=== PATIENT | female | born 1970 | race Caucasian/White ===

== ENCOUNTER 2016-12-11 10:26 | Emergency (ER) | payer OTHER ==
[2016-12-11 10:49] VITALS: BP 121/65
--- NOTE | 2016-12-11 17:27 | ED ---
Abdominal Pain/Female - HPI Summary HPI Summary: 46 YEAR OLD FEMALE PRESENTS WITH SEVERE RIGHT LOWER QUADRANT PAIN. I WILL REFER HER TO THE ER. - History of Current Complaint Chief Complaint: UCAbdominalPain Stated Complaint: ABD PAIN Time Seen by Provider: 12/11/16 10:58 Hx Last Menstrual Period: does not get Pain Intensity: 10 Pain Scale Used: 0-10 Numeric Allergies/Adverse Reactions: Allergies Allergy/AdvReac Type Severity Reaction Status Date / Time Amoxicillin Allergy See Comment Verified 12/11/16 10:49 Penicillins Allergy See Comment Verified 12/11/16 10:49 PMH/Surg Hx/FS Hx/Imm Hx Endocrine/Hematology History: Denies: Hx Diabetes, Hx Sickle Cell Disease, Hx Thyroid Disease Cardiovascular History: Denies: Hx Hypertension, Other Cardiovascular Problems/Disorders Respiratory History: Denies: Hx Asthma, Hx Chronic Obstructive Pulmonary Disease (COPD), Other Respiratory Problems/Disorders GI History: Denies: Hx Ulcer, Other GI Disorders History: Denies: Other Problems/Disorders Musculoskeletal History: Reports: Hx Arthritis - SPINE, NECK, Hx Tendonitis - RIGHT ELBOW ONLY Denies: Other Musculoskeletal History Sensory History: Reports: Hx Contacts or Glasses - GLASSES FOR DRIVING Denies: Hx Hearing Aid Opthamlomology History: Reports: Hx Contacts or Glasses - GLASSES FOR DRIVING Neurological History: Reports: Hx Migraine - PROPRANOLOL CONTROLING, 4-5 TIMES PER MONTH Denies: Other Neuro Impairments/Disorders Psychiatric History: Reports: Hx Depression - CYMBALTA - Cancer History Hx Chemotherapy: No Hx Radiation Therapy: No - Surgical History Surgery Procedure, Year, and Place: Hysterectomy 1999, [facility];. AGE 4 FROM DOG BITE, FACIAL RECONSTRUCTION, [place] Hx Anesthesia Reactions: No Infectious Disease History: No Infectious Disease History: Denies: Hx Clostridium Difficile, Hx Hepatitis, Hx Human Immunodeficiency Virus (HIV), Hx of Known/Suspected MRSA, Hx Shingles, Hx Tuberculosis, Hx Known/ Suspected VRE, Hx Known/Suspected VRSA, History Other Infectious Disease, Traveled Outside the [place] in Last 30 Days - Family History Known Family History: Positive: None - Social History Alcohol Use: None Substance Use Type: Reports: None Smoking Status (MU): Current Every Day Smoker Amount Used/How Often: 1/2 PPD Review of Systems Positive: Fever Positive: Abdominal Pain, Other - RLQ PAIN All Other Systems Reviewed And Are Negative: Yes Physical Exam Triage Information Reviewed: Yes Vital Signs On Initial Exam: Initial Vitals Temp Pulse Resp BP Pulse Ox 36.6 C 75 20 121/65 100 12/11/16 10:44 12/11/16 10:44 12/11/16 10:44 12/11/16 10:44 12/11/16 10:44 Vital Signs Reviewed: Yes Abdomen Description: Positive: McBurney's Point Tenderness - RLQ PAIN Diagnostics - Vital Signs Vital Signs Temp Pulse Resp BP Pulse Ox 12/11/16 10:44 36.6 C 75 20 121/65 100 - Laboratory Lab Statement: Any lab studies that have been ordered have been reviewed, and results considered in the medical decision making process. Abdominal Pain Fem Course/Dx - Diagnoses Differential Diagnosis: Positive: Appendicitis Provider Diagnoses: Abdominal pain Discharge - Discharge Plan Condition: Stable Disposition: AGAINST MEDICAL ADVICE Referrals: Javon TILLMANPVeda [Primary Care Provider] -
== END 2016-12-11 11:21 | disposition left against medical advice (07) ==
LOC: UCEAST 10:26
DX: R10.9 Unspecified abdominal pain (principal); M19.90 Unspecified osteoarthritis, unspecified site; G43.909 Migraine, unspecified, not intractable, without status migrainosus; F32.9 Major depressive disorder, single episode, unspecified; F17.210 Nicotine dependence, cigarettes, uncomplicated; Z88.1 Allergy status to other antibiotic agents; Z88.0 Allergy status to penicillin
CPT/HCPCS: 99212; G0463

== ENCOUNTER → 2016-12-11 11:35 | Emergency (ER) | payer OTHER ==
[~2016-12-11 11:35] MED LIST: Iohexol 300* (CONTRAST) 10 ML SDV IV ONE; NS 0.9% 1000 ML* 2,000 ML IV ONE
[2016-12-11 12:57] LABS: Hematocrit 40 % (35-47); Hemoglobin 13.7 g/dl (12.0-16.0); Mean Corpuscular HGB Conc 34 g/dl (31-36); Mean Corpuscular Hemoglobin 33 pg (27-31); Mean Corpuscular Volume 96 fL (80-97); Mean Platelet Volume 8 um3 (7.4-10.4); Red Blood Count 4.18 10^6/ul (4.0-5.4); Red Cell Distribution Width 13 % (10.5-15); White Blood Count 8.7 10^3/ul (3.5-10.8)
[2016-12-11 13:13] LABS: Albumin 3.8 g/dL (3.2-5.2); BUN/Creatinine Ratio 14.5 (8-20); C Reactive Protein 42.27 mg/L (< 5.00); Calcium 9.2 mg/dL (8.6-10.3); EGFR Non-African American 74.7 (>60); Globulin 2.7 g/dL (2-4); Potassium 3.4 mmol/L (3.5-5.0); Total Bilirubin 0.2 mg/dL (0.2-1.0); Total Protein 6.5 g/dL (6.4-8.9); Urine Bilirubin Negative (Negative); Urine Glucose Negative (Negative); Urine Nitrite Negative (Negative)
--- NOTE | 2016-12-11 13:21 | RAD ---
INDICATION: Right upper quadrant pain COMPARISON: None TECHNIQUE: Longitudinal and transverse scans of the right upper quadrant were obtained. Doppler interrogation of the hepatic and portal venous system was performed. FINDINGS: Liver: The liver is normal in size and echogenicity. There are no focal masses. The liver measures 17.1 cm in cephalocaudal dimension. Vessels: There is normal hepatic and portal venous flow. Bile ducts: There is no evidence of intrahepatic or extrahepatic ductal dilatation. The common duct measures 0.2 cm. Gallbladder: The sonographic appearance of the gallbladder is normal. There is no evidence of cholelithiasis, thickening of the gallbladder wall, or pericholecystic fluid. Pancreas: The visualized pancreas appears normal Right kidney: The right kidney is normal in size and echogenicity. There are no masses or calculi. There is no evidence of hydronephrosis. The right kidney measures 10.4 x 4.4 x 4.6 cm. IVC and aorta: The aorta and superior vena cava appear normal. Fluid: There is no ascites. Other: None. IMPRESSION: NORMAL STUDY.
--- NOTE | 2016-12-11 14:37 | RAD ---
INDICATION: Upper abdominal/epigastric pain. Nausea. Vomiting. COMPARISON: Gallbladder sonogram same date TECHNIQUE: Axial source images were obtained from the hemidiaphragms to the symphysis pubis following administration of oral and intravenous contrast. 79 mL Omnipaque 300 was utilized. Coronal and sagittal reconstructed images were acquired. Lung bases: The lung bases are clear. Liver: The liver is normal in size. There are no masses. There is no ductal dilatation. Gallbladder: The gallbladder is partially contracted. No calcified gallstones are seen. Spleen: The spleen is normal in size. There are no masses. Pancreas: There is no focal pancreatic mass or ductal dilatation. Adrenal glands: There is no evidence of adrenal mass. Kidneys: The kidneys are normal in size and position. There are prompt nephrograms and there is prompt excretion bilaterally. There are no renal parenchymal masses. There is no evidence of nephrolithiasis. Adenopathy: There is no evidence of adenopathy by size criteria. Fluid collections: There are no free or localized fluid collections. Vessels:There are no significant atherosclerotic changes involving the aorta. There is no focal aneurysm. The iliac vessels are normal in caliber. The IVC appears normal. GI tract: There are no acute CT bowel findings. The GE junction is patulous. The upper GI tract is otherwise unremarkable. There is moderate stool throughout the colon. The appendix is visualized and appears normal. There is no obstruction. Pelvic organs: There is hysterectomy. There is no adnexal mass Bladder: There are no bladder masses. Abdominal and pelvic soft tissues: The extraperitoneal abdominal and pelvic soft tissues appear normal.. Osseous structures: There are no acute osseous findings. Other: None IMPRESSION: RETAINED STOOL. NO MASS OR INFLAMMATORY CHANGES.
[2016-12-11 15:48] VITALS: BP 121/69
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
== END | disposition home or self-care (01) ==
LOC: ED 11:35
DX: K85.90 Acute pancreatitis without necrosis or infection, unspecified (principal); R10.13 Epigastric pain; F17.210 Nicotine dependence, cigarettes, uncomplicated
CPT/HCPCS: 36415; 74177; 76705; 80053; 81003; 82150; 83605; 83690; 85025; 86140; 93005; 96360; 99283; Q9967

== ENCOUNTER 2017-11-05 08:04 | Day surgery (SDC) | payer OTHER ==
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
[~2017-11-05 08:04] MED LIST changes: +Buffered Lidocaine 0.9% SYRIN* 5 ML/SYR SYRINGE INTRADERM ONE; -Iohexol 300* (CONTRAST) 10 ML SDV IV ONE; -NS 0.9% 1000 ML* 2,000 ML IV ONE; +Sodium Citrate/Citric Acid* 15 ML UDC PO ONE
[2017-11-05] MEDS ORDERED: Clindamycin 900 MG IVPREMIX(* 900 MG/50 ML SDV IV ONE (08:14)
[2017-11-05] MEDS ORDERED: Sodium Citrate/Citric Acid* 15 ML UDC ONE (08:14)
[2017-11-05] MEDS ORDERED: Bupivacaine 0.5% SDV PF* 30ML VIAL ONE (08:56)
[2017-11-05] MEDS ORDERED: Naloxone* 0.4 MG/ML 1 ML VIAL IV PRN (09:41)
[2017-11-05] MEDS ORDERED: Midazolam* 1 MG/ML 2 ML VIAL (2 MG) ONE (09:47)
[2017-11-05] MEDS ORDERED: Lidocaine 0.5%* 50 ML SDV ONE (09:47)
[2017-11-05] MEDS ORDERED: fentaNYL* 50 MCG/ML 2 ML VIAL (100 MCG VIAL) ONE (10:04)
[2017-11-05] MEDS ORDERED: Propofol* 10 MG/ML 20 ML BTL IV PUSH ONE (10:48)
[2017-11-05] MEDS ORDERED: DiMENhydriNATE IV* 50 MG/ML VIAL ONE (10:48)
[2017-11-05 11:06] VITALS: BP 110/72
--- NOTE | 2017-11-06 07:51 | OP ---
DATE OF OPERATION: 11/05/17 [facility] DATE OF : 74 SURGEON: Amelia Dimas MD [employer] PASTER: LARRY Burr ANESTHESIA: IV regional. PRE-OP DIAGNOSIS: Left thumb carpometacarpal arthritis. POST-OP DIAGNOSIS: Left thumb carpometacarpal arthritis. OPERATIVE PROCEDURE: Left thumb CMC arthroplasty. INDICATIONS: Daphne is a 47-year-old woman, who has painful arthritis at the base of her left thumb. This occurred after an injury at work. It has gotten worse over time and she presents now for left thumb CMC arthroplasty. ESTIMATED BLOOD LOSS: Zero. TOURNIQUET TIME: About 30 minutes. DESCRIPTION OF PROCEDURE: The patient was brought to the operating room, was given a sedation anesthetic, and an IV regional anesthetic with a tourniquet around her left forearm. Skin of her left hand and forearm was prepped and draped in the usual sterile fashion. The hand and forearm were exsanguinated and the tourniquet elevated to 250 mmHg. An S-shaped incision was made centered at the thumb CMC joint. We dissected bluntly through the subcutaneous tissue. The branches of the radial sensory nerve were located, then were retracted by the phys assistant, Mary Linder, whose assistance was essential for the safe completion of the case. The radial artery was dissected off the CMC joint capsule and this too was retracted by the phys assistant, Mary Linder. A distally based U-shaped flap was created at the thumb CMC joint capsule and then the trapezium was subperiosteally dissected away from the surrounding bones and tissues and removed in its entirety with the rongeur and osteotome. The wound was copiously irrigated with saline. The CMC joint capsule was then secured to the FCR tendon, which was in the base of the wound and this gave very nice abduction position of the metacarpal. The MP joint had a nice flexion position. The remainder of the capsule was closed with 4-0 nylon suture while the metacarpal was held abducted. The wound was irrigated and the skin edges reapproximated with 4-0 nylon suture. The wound was dressed with Xeroform, 4x4, Webril, and a thumb spica splint. The patient tolerated the procedure well and was brought to the recovery room in good condition. [id number]/[facility] #: [id number] [facility]
== END 2017-11-05 11:40 | disposition home or self-care (01) ==
LOC: OREAST 08:04
PROVIDERS: ATTEND Orthopaedic Surgery
DX: M18.32 Unilateral post-traumatic osteoarthritis of first carpometacarpal joint, left hand (principal); F17.210 Nicotine dependence, cigarettes, uncomplicated; M79.7 Fibromyalgia; E78.00 Pure hypercholesterolemia, unspecified; G43.909 Migraine, unspecified, not intractable, without status migrainosus; M16.10 Unilateral primary osteoarthritis, unspecified hip
CPT/HCPCS: A9270-GY; J1240; J2250; J2704; J3010

== ENCOUNTER 2018-08-09 14:35 | Emergency (ER) | payer BC ==
[2018-08-09 14:54] VITALS: BP 122/69
--- NOTE | 2018-08-09 15:20 | UC ---
Back Pain HPI - HPI Summary HPI Summary: 48-year-old woman comes in with a chief complaint of low back pain is radiating down the left leg. Pain started about 8 days ago. Her job she does do a lot of lifting and twisting and bending. She can't say whether or not the pain started at her job or not. She's been taking ibuprofen and Tylenol with minimal relief. The pain does go down the left leg. It hurts to move the left leg and twisted her in the back. No complaint of any numbness or loss of control of urine or bowel. There is pain with range of motion in the patient reports she is able to force the leg to do whatever she wants and therefore denies any weakness. No specific trauma denies any prior history of low back pain. - History of Current Complaint Chief Complaint: UCBackPain Stated Complaint: LOWER LFT BACK PAIN Time Seen by Provider: 08/09/18 14:51 Hx Last Menstrual Period: does not get Pain Intensity: 10 - Allergies/Home Medications Allergies/Adverse Reactions: Allergies Allergy/AdvReac Type Severity Reaction Status Date / Time clindamycin Allergy Itching Verified 08/09/18 14:47 Penicillins Allergy Unknown Verified 08/09/18 14:47 Reaction Details PMH/Surg Hx/FS Hx/Imm Hx Previously Healthy: Yes - arthritis Cardiovascular History: Hypertension - Surgical History Surgical History: Yes Surgery Procedure, Year, and Place: Hysterectomy 1999, [facility] – [place]. AGE 4 FROM DOG BITE, FACIAL RECONSTRUCTION, [facility]. left [place] finger, 2012, [facility] [place]. L thumb surgery 10/2017 - Family History Known Family History: Positive: None Negative: Cardiac Disease, Hypertension, Diabetes - Social History Alcohol Use: None Alcohol Amount: holidays Substance Use Type: None Smoking Status (MU): Current Every Day Smoker Amount Used/How Often: pack a day since age 16 - Immunization History Most Recent Tetanus Shot: one yr ago Review of Systems All Other Systems Reviewed And Are Negative: Yes Constitutional: Positive: Negative Skin: Positive: Negative Eyes: Positive: Negative ENT: Positive: Negative Respiratory: Positive: Negative Cardiovascular: Positive: Negative Gastrointestinal: Positive: Negative Genitourinary: Positive: Negative Motor: Positive: Negative Neurovascular: Positive: Negative Musculoskeletal: Positive: Other: - see hpi Neurological: Positive: Negative Psychological: Positive: Negative Is Patient Immunocompromised?: No Physical Exam Triage Information Reviewed: Yes Appearance: Well-Appearing, Well-Nourished, Pain Distress Vital Signs: Initial Vital Signs Temp 99.0 F 08/09/18 14:46 Pulse 69 08/09/18 14:46 Resp 18 08/09/18 14:46 BP 122/69 08/09/18 14:46 Pulse Ox 99 08/09/18 14:46 Vital Signs Reviewed: Yes Eye Exam: Normal Eyes: Positive: Conjunctiva Clear Neck exam: Normal Neck: Positive: Supple Respiratory: Positive: No respiratory distress Musculoskeletal: Positive: Other: - Patient is tender to palpation of the lumbar spine. Paraspinous muscles on the left feel like and spasm. Patient is tender to palpation along the left sciatic nerve distribution into the left buttock. Patient's plantar flexion and dorsiflexion bilaterally 5 out of 5. Knee flexion extension and hip flexion are all 5 out of 5 strength. No sensation deficits normal capillary refill. Patient does have more pain in the back with movement of the left leg primarily at the left hip flexion. Neurological Exam: Normal Neurological: Positive: Alert, Muscle Tone Normal Psychological Exam: Normal Psychological: Positive: Age Appropriate Behavior Skin Exam: Normal Back Pain Course/Dx - Course Course Of Treatment: Patient Name: JULIO CESAR REYES Medical Record#: [id number]. Ordering Physician: Micheal Meyrs MD Acct.#: [id number]. : 1970 Age: 48 Sex: F Location: [facility]. Exam Date: 08/09/18 1514 ADM Status: REG ER. Order Information: CT SPINE LUMBAR W/O. Accession Number: [id number]. CPT: 79256. HISTORY: low back pain,radiation down left leg. COMPARISONS: None. TECHNIQUE: Multiple contiguous axial CT scans were obtained of the lumbar spine without. intravenous contrast, with coronal and sagittal multiplanar reformations. FINDINGS: SPINAL CANAL: Evaluation of the central canal is limited on CT technique; however, there. is no obvious canalicular mass or epidural hemorrhage. ALIGNMENT: The alignment is normal. VERTEBRAL BODIES: The vertebral bodies are preserved in height. The bones are normal in. attenuation. JOINTS: There is no subluxation or dislocation. MUSCULATURE: Unremarkable. INTERVERTEBRAL DISCS: There is mild diffuse loss of intervertebral disc height throughout. the spine. AXIAL IMAGES: T12-L1: There is no osseous neural foraminal narrowing or central canal stenosis. L1-L2 : There is no osseous neural foraminal narrowing or central canal stenosis. L2- L3: There is no osseous neural foraminal narrowing or central canal stenosis. L3-L4: There is a mild broad-based disc bulge. There is no osseous neural foraminal. narrowing or central canal stenosis. L4-L5: There is a mild broad- based disc bulge. There is no osseous neural foraminal. narrowing or central canal stenosis. L5-S1: There is a mild broad-based disc bulge. There is no osseous neural foraminal. narrowing or central canal stenosis. SOFT TISSUES: The visualized soft tissues of the abdomen are unremarkable. OTHER: None. IMPRESSION: MILD DEGENERATIVE DISC DISEASE. NO OSSEOUS NEURAL FORAMINAL NARROWING OR CENTRAL CANAL. STENOSIS. . <Electronically signed by Uli ePrry MD in OV> 08/09/18 3873. I discussed the CT report with patient. Patient has no focal neurologic deficit at this time. Patient can continue with her nonsteroidal anti-inflammatories and icing the area. Doing a prescription for both Flexeril and hydrocodone. Patient reports having Flexeril past and it did not seem to help for a prior pain. I encouraged her to try the Flexeril first that that worked sooner if acutely she does not need to take hydrocodone but she has not had chronic necessary. Plan is to follow-up with her primary care physician. Patient will return here if worse in any questions or concerns. I did let her know that if she has any focal neurologic deficit she needs to get evaluated again right away. - Differential Dx/Diagnosis Provider Diagnosis: Low back pain, Lumbar radiculopathy Discharge - Sign-Out/Discharge Documenting (check all that apply): Patient Departure All imaging exams completed and their final reports reviewed: Yes - Discharge Plan Condition: Stable Disposition: HOME Prescriptions: Cyclobenzaprine TAB* [Flexeril 10 MG TAB*] 10 mg PO TID PRN #15 tab PRN Reason: Pain HYDROcodone/ACETAMIN 5-325 MG* [[place] 5-325 TAB*] 1 tab PO Q4H PRN #20 tab MDD 6 PRN Reason: Pain Patient Education Materials: Acute Low Back Pain (ED), Lumbar Radiculopathy (ED ), Lower Back Exercises (ED) Referrals: Raina Mims [Primary Care Provider] - Additional Instructions: FOLLOW UP WITH YOUR DOCTOR IF NOT COMPLETELY IMPROVED. GET RECHECKED FOR ANY WORSENING OF YOUR CONDITION; WEAKNESS, NUMBNESS, DIFFICULTY CONTROLLING BOWEL OR BLADDER OR QUESTIONS OR CONCERNS. - Billing Disposition and Condition Condition: STABLE Disposition: Home
== END 2018-08-09 16:10 | disposition home or self-care (01) ==
LOC: UCEAST 14:35
DX: M54.5 Low back pain (principal); M54.16 Radiculopathy, lumbar region; F17.210 Nicotine dependence, cigarettes, uncomplicated; I10 Essential (primary) hypertension; Z88.1 Allergy status to other antibiotic agents; Z88.0 Allergy status to penicillin
CPT/HCPCS: 72131; 99212; G0463